=== PATIENT | male | born 2000 | race Caucasian/White ===

== ENCOUNTER 2021-02-26 05:07 | Emergency (ER) | payer MEDICAID ==
[~2021-02-26] VITALS: Ht 177.8 cm; Wt 98.0 kg
[~2021-02-26 05:07] MED LIST: AMOXICILLI250 MG/5 M OR; AMOXICILLIN500 MG OR; NO MEDS; PREDNISODT10 PO; ZYRTEC10 MG PO; ZYRTEC5 M1 OR
[2021-02-26 06:45] VITALS: BP 106/60
== END 2021-02-26 06:57 | disposition home or self-care (01) ==
LOC: ED 05:07
DX: J06.9 Acute upper respiratory infection, unspecified (principal); Z20.822 Contact with and (suspected) exposure to COVID-19

== ENCOUNTER 2021-06-15 14:29 | Emergency (ER) | payer MEDICAID ==
[~2021-06-15] VITALS: Ht 182.9 cm; Wt 100.0 kg
[2021-06-15] MEDS ORDERED: NAPROXEN500 MG PO (15:30)
[2021-06-15 15:40] VITALS: BP 120/70
== END 2021-06-15 15:40 | disposition home or self-care (01) ==
LOC: ED 14:29
DX: S93.401A Sprain of unspecified ligament of right ankle, initial encounter (principal); J45.909 Unspecified asthma, uncomplicated; X50.0XXA Overexertion from strenuous movement or load, initial encounter; Y93.89 Activity, other specified

== ENCOUNTER 2021-10-09 10:05 | Emergency (ER) | payer MEDICAID ==
[~2021-10-09] VITALS: Ht 182.9 cm; Wt 85.0 kg
[~2021-10-09 10:05] MED LIST changes: +NAPROXEN500 MG PO
[2021-10-09 13:10] VITALS: BP 139/75
== END 2021-10-09 13:10 | disposition home or self-care (01) ==
LOC: ED 10:05
DX: U07.1 COVID-19 (principal); J45.909 Unspecified asthma, uncomplicated

== ENCOUNTER 2022-06-23 15:28 | Emergency (ER) | payer MEDICAID ==
[~2022-06-23] VITALS: Ht 180.3 cm; Wt 93.4 kg
[2022-06-23] VITALS (7 sets, daily range): BP systolic 108–124; BP diastolic 62–87
== END 2022-06-23 17:12 | disposition home or self-care (01) ==
LOC: ED 15:28
DX: D18.01 Hemangioma of skin and subcutaneous tissue (principal); J45.909 Unspecified asthma, uncomplicated

== ENCOUNTER 2022-07-20 15:04 | Emergency (ER) | payer MEDICAID ==
[~2022-07-20] VITALS: Ht 182.9 cm; Wt 97.0 kg
[2022-07-20 15:14] VITALS: BP 123/84
[2022-07-20 15:57] VITALS: BP 123/84
== END 2022-07-20 16:01 | disposition home or self-care (01) ==
LOC: ED 15:04
DX: D18.01 Hemangioma of skin and subcutaneous tissue (principal); J45.909 Unspecified asthma, uncomplicated

== ENCOUNTER 2024-05-06 10:49 | Emergency (ER) | payer MEDICAID ==
[~2024-05-06] VITALS: Ht 182.9 cm; Wt 96.2 kg
[2024-05-06 13:39] VITALS: BP 134/72
== END 2024-05-06 13:39 | disposition home or self-care (01) ==
LOC: ED 10:49
DX: J06.9 Acute upper respiratory infection, unspecified (principal); J45.909 Unspecified asthma, uncomplicated; Z20.822 Contact with and (suspected) exposure to COVID-19

== ENCOUNTER 2024-06-15 16:36 | Emergency (ER) | payer MEDICAID ==
[~2024-06-15] VITALS: Ht 182.9 cm; Wt 91.0 kg
[2024-06-15 16:46] VITALS: BP 127/73
[2024-06-15] MEDS ORDERED: ORPHENADRINE CITRATE 30 MG/ML AMP IM ONE (17:00)
[2024-06-15] MEDS ORDERED: KETOROLAC TROMETHAMINE 30 MG/ML SDV IM ONE (17:00)
[2024-06-15 17:16] VITALS: BP 112/72
[2024-06-15 17:19] LABS: URINE BLOOD DIPSTICK Negative (NEGATIVE); URINE GLUCOSE - DIPSTICK Negative (NEGATIVE); URINE KETONE Trace mg/dL (NEGATIVE); URINE LEUK ESTERASE Negative (NEGATIVE); URINE NITRITE - DIPSTICK Negative (Negative); URINE PROTEIN - DIPSTICK Trace mg/dL (NEG-TRACE); URINE SPECIFIC GRAVITY 1.025
[2024-06-15 17:20] LABS: URINE COLOR Yellow
[2024-06-15 18:34] VITALS: BP 113/74
[2024-06-15] MEDS ORDERED: NAPROXEN500 MG PO (18:44)
[2024-06-15] MEDS ORDERED: PREDNISONE20 MG PO (18:44)
[2024-06-15] MEDS ORDERED: METHOCARBAMOL500 MG PO (18:44)
[2024-06-15 18:45] VITALS: BP 119/73
[2024-06-15 18:51] VITALS: BP 119/73
== END 2024-06-15 18:55 | disposition home or self-care (01) ==
LOC: ED 16:36
PROVIDERS: Nurse Practitioner
DX: M54.50 Low back pain, unspecified (principal); J45.909 Unspecified asthma, uncomplicated